=== PATIENT | female | born 1995 | race Native Hawaiian/Other Pacific Islander ===

== ENCOUNTER 2017-11-03 18:58 | Emergency (ER) | payer MEDICAID ==
[2017-11-03 19:38] LABS: Basophils # (Auto) 0.1 K/mm3 (0.0-0.1); Basophils % (Auto) 0.4 % (0.0-1.8); Eosinophils # (Auto) 0.1 K/mm3 (0.0-0.4); Eosinophils % (Auto) 0.4 % (0.0-4.3); Hematocrit 40.1 % (30.3-42.9); Hemoglobin 13.2 gm/dl (10.1-14.3); Lymphocytes # (Auto) 4.3 K/mm3 (1.2-5.4); Mean Corpuscular HGB Conc 33 % (30-34); Mean Corpuscular Hemoglobin 29 pg (28-32); Mean Corpuscular Volume 87 fl (79-97); Monocytes # (Auto) 1.1 K/mm3 (0.0-0.8); Platelet Count 264 K/mm3 (140-440); Red Blood Count 4.63 M/mm3 (3.65-5.03); Red Cell Distribution Width 14.3 % (13.2-15.2)
[2017-11-03 19:53] LABS: BUN/Creatinine Ratio 18; Blood Urea Nitrogen 16 mg/dL (7-17); Calcium 9.2 mg/dL (8.4-10.2); Hemolysis Index 14
[2017-11-03] MEDS ORDERED: GEODON IM ONE (20:24)
--- NOTE | 2017-11-03 20:36 | Emergency Department Report ---
ED Psych HPI - General Chief Complaint: Psych Stated Complaint: AMS Time Seen by Provider: 11/03/17 20:08 Source: patient Mode of arrival: Ambulatory - History of Present Illness Initial Comments: Patient is 22 years old female, unknown to this provider. Patient brought by a friend to the ER screaming and being combative upon arrival. With the strong odor of alcohol. Patient has an episode of agitation and episode of being calm. Unable to obtain more information at this time from the patient due to her mental status. MD Complaint: altered mental status - Related Data Previous Rx's Medication Instructions Recorded Last Taken Type Polyethylene Glycol 3350 [Miralax 17 gm PO DAILY #1 bottle 03/27/13 Unknown Rx 3350] Nitrofurantoin Monohyd/M-Cryst 100 mg PO BID #10 capsule 11/04/17 Unknown Rx [Macrobid 100 mg Capsule] Allergies Allergy/AdvReac Type Severity Reaction Status Date / Time No Known Allergies Allergy Unverified 03/27/13 00:43 ED Review of Systems ROS: Stated complaint: AMS Other details as noted in HPI Comment: All other systems reviewed and negative Constitutional: denies: chills Respiratory: denies: cough, orthopnea, shortness of breath, SOB with exertion, SOB at rest Cardiovascular: denies: chest pain Gastrointestinal: denies: abdominal pain, nausea Neurological: denies: headache, weakness ED Past Medical Hx - Past Medical History Previous Medical History?: Yes Hx Asthma: Yes - Surgical History Past Surgical History?: No - Social History Smoking Status: Unknown if ever smoked - Medications Home Medications: Home Medications Medication Instructions Recorded Confirmed Last Taken Type Polyethylene Glycol 3350 [Miralax 17 gm PO DAILY #1 bottle 03/27/13 11/03/17 Unknown Rx 3350] Nitrofurantoin Monohyd/M-Cryst 100 mg PO BID #10 capsule 11/04/17 Unknown Rx [Macrobid 100 mg Capsule] ED Physical Exam - General Limitations: No Limitations General appearance: alert, in no apparent distress, anxious, other (agitated) - Head Head exam: Present: atraumatic, normocephalic, normal inspection - Eye Eye exam: Present: normal appearance - ENT ENT exam: Present: normal exam, normal orophraynx, mucous membranes moist - Neck Neck exam: Present: normal inspection, full ROM. Absent: tenderness, meningismus, lymphadenopathy, thyromegaly - Respiratory Respiratory exam: Present: normal lung sounds bilaterally. Absent: respiratory distress, wheezes, rales - Cardiovascular Cardiovascular Exam: Present: regular rate, normal rhythm, normal heart sounds - GI/Abdominal GI/Abdominal exam: Present: soft, normal bowel sounds. Absent: distended, tenderness, guarding, rebound, rigid, organomegaly, mass, bruit, pulsatile mass , hernia - Extremities Exam Extremities exam: Present: normal inspection, full ROM, normal capillary refill - Neurological Exam Neurological exam: Present: alert, altered, CN II-XII intact, normal gait, reflexes normal - Psychiatric Psychiatric exam: Present: agitated, anxious, manic - Skin Skin exam: Present: warm, intact, normal color ED Course Vital Signs 11/03/17 11/03/17 11/04/17 19:54 21:38 10:00 Temperature 98.7 F 97.3 F L Pulse Rate 96 H 84 77 Respiratory 20 18 18 Rate Blood Pressure 119/77 118/65 111/68 [Left] O2 Sat by Pulse 98 100 99 Oximetry ED Medical Decision Making - Lab Data Result diagrams: 11/03/17 19:27 11/03/17 19:27 Critical care attestation.: If time is entered above; I have spent that time in minutes in the direct care of this critically ill patient, excluding procedure time. ED Disposition Clinical Impression: Cocaine abuse UTI (urinary tract infection) Qualifiers: Urinary tract infection type: site unspecified Hematuria presence: without hematuria Qualified Code(s): N39.0 - Urinary tract infection, site not specified Disposition: DC-01 TO HOME OR SELFCARE Is pt being admited?: No Condition: Stable Instructions: Cocaine Abuse (ED), Abuse of Alcohol (ED), Contusion in Adults ( ED) Additional Instructions: Return any acute change or problem. Follow-up at [facility] as well as [facility] Prescriptions: Nitrofurantoin Monohyd/M-Cryst [Macrobid 100 mg Capsule] 100 mg PO BID #10 capsule Referrals: [facility] [Provider Group] - 3-5 Days [facility] [Outside] - 3-5 Days [facility], [Primary Care Provider] - 3-5 Days
[2017-11-04 04:25] LABS: Amorphous Crystals,Urine 3+; Bacteria,Urine 4+ /HPF (Negative); Bilirubin,Urine NEG (Negative); Blood,Urine NEG (Negative); Color,Urine Amber (Yellow)
[2017-11-04 04:29] LABS: Benzodiazepines Screen,Urine PRESUMPTIVE NEGATIVE; Cocaine Screen,Urine PRESUMPTIVE NEGATIVE; Methadone Screen,Urine PRESUMPTIVE NEGATIVE; Opiate Screen,Urine PRESUMPTIVE NEGATIVE
[2017-11-04 04:57] LABS: Amphetamine Screen,Urine PRESUMPTIVE POSITIVE; Cannabinoid Screen,Urine PRESUMPTIVE POSITIVE
[2017-11-04] MEDS ORDERED: TYLENOL PO PRN (12:33)
[2017-11-04 13:05] VITALS: BP 111/68
--- NOTE | 2017-11-04 13:38 | Consultation ---
History of Present Illness - Reason for Consult Consult date: 11/04/17 Reason for consult: Mental Health Evaluation Requesting physician: JULY LARKIN - Chief Complaint Chief complaint: "I was drunk" - History of Present Psychiatric Illness 22 y.o. female presenting to the ER for etoh. Today the patient is calm and cooperative during the assessment. She stated having a long hx of substance abuse and most recently frequent alcohol consumption (etoh). She stated that she started using "drugs" at the age of 16. She stated that her drug use stem from peer pressure, but is aware that recreational drug use isn't safe. She denies being depressed and manic episodes in the past. She denies SI/HI's and AVH's. She denies a poor appetite and erratic sleep. She stated that she is willing to attend rehab once discharged. Medications and Allergies Allergies Allergy/AdvReac Type Severity Reaction Status Date / Time No Known Allergies Allergy Unverified 03/27/13 00:43 Home Medications Medication Instructions Recorded Confirmed Last Taken Type Polyethylene Glycol 3350 [Miralax 17 gm PO DAILY #1 bottle 03/27/13 11/03/17 Unknown Rx 3350] Active Meds: Active Medications Ziprasidone (Geodon) 20 mg IM ONCE ONE Stop: 11/04/17 20:21 Last Admin: 11/03/17 20:30 Dose: 20 mg Past psychiatric history - Past Medical History Past Medical History: No medical history Past Surgical History: No surgical history - past Psychiatric treatment and history psychiatric treatment history: Substance abuse hx. Denies a fam psy hx. - Social History Social history: lives with family Mental Status Exam - Vital signs Last Vital Signs Temp 97.3 F L 11/03/17 21:38 Pulse 77 11/04/17 10:00 Resp 18 11/04/17 10:00 BP 111/68 11/04/17 10:00 Pulse Ox 99 11/04/17 10:00 - Exam Narrative exam: MSE: Appearance: calm, cooperative Behavior: regular eye contact Speech: regular rate and tone Mood: "okay" Affect: congruent to mood Thought Process: linear Thought Content: denies SI/HI's and AVH's Motor Activity: lying in bed Cognition: A/O x 3 Insight: appropriate Judgment: appropriate Results Result Diagrams: 11/03/17 19:27 11/03/17 19:27 Abnormal lab results 11/03/17 11/03/17 11/03/17 Range/Units 19:27 19:27 19:27 WBC (4.5-11.0) K/mm3 [place] # (0.0-0.8) K/mm3 Seg Neutrophils # (1.8-7.7) K/mm3 Potassium 3.4 L (3.6-5.0) mmol/L Carbon Dioxide 18 L (22-30) mmol/L Glucose 130 H (65-100) mg/dL Urine WBC (Auto) (0.0-6.0) /HPF Salicylates < 0.3 L (2.8-20.0) mg/dL Acetaminophen < 5.0 L (10.0-30.0) ug/mL Plasma/Serum Alcohol (0-0.07) % 11/03/17 11/03/17 11/03/17 Range/Units 19:27 19:27 Unknown WBC 15.5 H (4.5-11.0) K/mm3 [place] # 1.1 H (0.0-0.8) K/mm3 Seg Neutrophils # 9.9 H (1.8-7.7) K/mm3 Potassium (3.6-5.0) mmol/L Carbon Dioxide (22-30) mmol/L Glucose (65-100) mg/dL Urine WBC (Auto) 11.0 H (0.0-6.0) /HPF Salicylates (2.8-20.0) mg/dL Acetaminophen (10.0-30.0) ug/mL Plasma/Serum Alcohol 0.13 H (0-0.07) % All other labs normal. Assessment and Plan Assessment and plan: Impression: Alcohol Use DO. Substance Use DO (cocaine). Cannabis Use DO. Alcohol Intoxication on admission to the ER. Today the patient is calm and cooperative during the assessment. DDx; R/O Mood DO Recommendation/Plan: Rescind 1013. The patient can follow up with [facility] for rehabs services. Discussed the importance to abstain from alcohol consumption and recreational drug use with the patient.
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
[2017-11-04] MEDS ORDERED: GEODON IM ONE (20:20)
== END 2017-11-04 16:30 | disposition home or self-care (01) ==
LOC: ED 18:58
DX: F14.10 Cocaine abuse, uncomplicated (principal); N39.0 Urinary tract infection, site not specified; J45.909 Unspecified asthma, uncomplicated
CPT/HCPCS: 36415; 80048; 80307; 81001; 84703; 85025; 96372; 99284; G0480; J3486; 80320

== ENCOUNTER 2018-03-16 09:03 | Day surgery (SDC) | payer SELFPAY ==
[2018-03-16] MEDS ORDERED: TYLENOL PO ONE (10:00)
--- NOTE | 2018-03-16 10:02 | Emergency Department Report ---
ED Female HPI - General Chief complaint: Vaginal Bleeding Stated complaint: POSS MISCARRIAGE Time Seen by Provider: 03/16/18 09:57 Source: patient Mode of arrival: Ambulatory Limitations: No Limitations - History of Present Illness Initial comments: Patient is a 23-year-old female who is presenting with heavier than normal vaginal bleeding. Patient's last missed her period was probably one month ago. Patient states that she began having lower abdominal cramping this morning. Patient's states she was rocking back and forth holding her abdomen all night long. Patient now is complaining of heavy vaginal bleeding with clots. Patient states pain feels better when she is holding her legs in a position and worse when her legs are straight. Patient denies any fevers chills nausea vomiting diarrhea or dysuria at this time. Patient states pain is 8 out of 10 in severity is cramping in nature. - Related Data Previous Rx's Medication Instructions Recorded Last Taken Type Polyethylene Glycol 3350 [Miralax 17 gm PO DAILY #1 bottle 03/27/13 Unknown Rx 3350] Nitrofurantoin Monohyd/M-Cryst 100 mg PO BID #10 capsule 11/04/17 Unknown Rx [Macrobid 100 mg Capsule] Allergies Allergy/AdvReac Type Severity Reaction Status Date / Time No Known Allergies Allergy Unverified 03/27/13 00:43 ED Review of Systems ROS: Stated complaint: POSS MISCARRIAGE Other details as noted in HPI Comment: All other systems reviewed and negative ED Past Medical Hx - Past Medical History Previous Medical History?: No Hx Asthma: Yes - Surgical History Past Surgical History?: No - Social History Smoking Status: Current Every Day Smoker Substance Use Type: Marijuana - Medications Home Medications: Home Medications Medication Instructions Recorded Confirmed Last Taken Type Polyethylene Glycol 3350 [Miralax 17 gm PO DAILY #1 bottle 03/27/13 11/03/17 Unknown Rx 3350] Nitrofurantoin Monohyd/M-Cryst 100 mg PO BID #10 capsule 11/04/17 Unknown Rx [Macrobid 100 mg Capsule] ED Physical Exam - General Limitations: No Limitations General appearance: alert, in no apparent distress - Head Head exam: Present: atraumatic, normocephalic - Eye Eye exam: Present: normal appearance - ENT ENT exam: Present: mucous membranes moist - Neck Neck exam: Present: normal inspection - Respiratory Respiratory exam: Present: normal lung sounds bilaterally. Absent: respiratory distress, wheezes, rales, rhonchi - Cardiovascular Cardiovascular Exam: Present: normal rhythm, tachycardia. Absent: systolic murmur, diastolic murmur, rubs, gallop - GI/Abdominal GI/Abdominal exam: Present: soft, tenderness, normal bowel sounds. Absent: distended, guarding, rebound, rigid - Extremities Exam Extremities exam: Present: normal inspection - Back Exam Back exam: Present: normal inspection - Neurological Exam Neurological exam: Present: alert, oriented X3 - Psychiatric Psychiatric exam: Present: normal affect, normal mood - Skin Skin exam: Present: warm, dry, intact, normal color. Absent: rash ED Course Vital Signs 03/16/18 03/16/18 03/16/18 09:10 10:22 15:21 Temperature 98.4 F Pulse Rate 121 H 97 H Respiratory 18 20 Rate Blood Pressure 154/76 Blood Pressure 137/85 [Right] O2 Sat by Pulse 100 Oximetry 03/16/18 15:58 Temperature Pulse Rate Respiratory 18 Rate Blood Pressure Blood Pressure [Right] O2 Sat by Pulse Oximetry ED Medical Decision Making - Lab Data Result diagrams: 03/16/18 11:59 - Medical Decision Making Patient bled through her clothes that she arrived and as well as several pads. Patient continued to have severe suprapubic pain. Ultrasound showed no definitive gestational sac visualized. Differential diagnoses include early IUP versus a failed first trimester . Once no IUP was seen with the Quant being 2600 patient was given 1 dose of morphine for pain control. with [employer] TECHNICIAN been consulted and states she will see the patient. Emergency department. Critical care attestation.: If time is entered above; I have spent that time in minutes in the direct care of this critically ill patient, excluding procedure time. ED Disposition Clinical Impression: Incomplete Disposition: DC-01 TO HOME OR SELFCARE Is pt being admited?: No Does the pt Need Aspirin: No Condition: Stable
[2018-03-16 12:14] LABS: Hematocrit 33.1 % (30.3-42.9); Hemoglobin 10.9 gm/dl (10.1-14.3); Mean Corpuscular HGB Conc 33 % (30-34); Mean Corpuscular Volume 86 fl (79-97); Platelet Count 210 K/mm3 (140-440); Red Blood Count 3.84 M/mm3 (3.65-5.03); Red Cell Distribution Width 14.2 % (13.2-15.2)
[2018-03-16 14:49] LABS: Basophils % (Manual) 0 % (0.0-1.8); Total Cells Counted 100
[2018-03-16 14:50] LABS: Anisocytosis 1+; Platelet Estimate Consistent w Auto
--- NOTE | 2018-03-16 15:19 | Ultrasound Report ---
FINAL REPORT EXAM: US OB <= 14 WEEKS FETUS HISTORY: preg with vag bleed COMPARISON: None. TECHNIQUE: Transabdominal imaging of the pelvis was performed. Evaluation was somewhat limited as th e bladder was not full. The patient refused transvaginal imaging. FINDINGS: The uterus measures 10.7 x 5.5 x 4.1 centimeters and is anteverted. The endometrium measures 10.3 millimeters in thickness. A gestational sac and yolk sac are not defini tely visualized. There may be a small amount of fluid within the lower uterine segment. The right ovary measures 3.1 x 3.2 x 2.4 centimeters and is normal in morphology. The left ovary measures 3 x 1.6 x 2 centimeters and is normal in morphology. There is normal arterial and venous flow to the bilateral ovaries. IMPRESSION: No definite gestational sac is visualized. Differential diagnosis includes very early intrauterine pr egnancy versus failed 1st trimester . Recommend serial beta HCG measurements and ultrasound follow-up as clinically indicated. Consider repeat imaging with full bladder and/or transvaginal imag ing. Small amount fluid within the lower uterine segment, that may represent hemorrhage.
[2018-03-16] MEDS ORDERED: MORPHINE IV ONE (15:34)
[2018-03-16] MEDS ORDERED: BENADRYL ONE (15:56)
[2018-03-16] MEDS ORDERED: BENADRYL IV ONE (15:57)
--- NOTE | 2018-03-16 17:30 | History and Physical Report ---
History of Present Illness Date of examination: 03/16/18 Date of admission: 03/16/18 Chief complaint: Heavy vaginal bleeding, positive test. History of present illness: Patient is a 23 year old , LMP unknown, who presented to the ER complaining of having heavy vaginal bleeding. She states that she started to have bleeding around 2 AM, then the cramps early this AM. She has been passing clots but is not sure if she passed any tissues. Her test is positive. She said that she did not know that she was . She denies any dizziness or p alpitation. Serum HCG is 2600. H/H: 10.9/33. Past History Past Medical History: asthma, other (anxiety) Past Surgical History: no surgical history Family/Genetic History: none Social history: single, smoking, other (crystal meth abuse, marijuana. H/O cocaine but said she stopped over a year ago.) Medications and Allergies Allergies Allergy/AdvReac Type Severity Reaction Status Date / Time No Known Allergies Allergy Unverified 03/27/13 00:43 Home Medications Medication Instructions Recorded Confirmed Last Taken Type Polyethylene Glycol 3350 [Miralax 17 gm PO DAILY #1 bottle 03/27/13 11/03/17 Unknown Rx 3350] Nitrofurantoin Monohyd/M-Cryst 100 mg PO BID #10 capsule 11/04/17 Unknown Rx [Macrobid 100 mg Capsule] - Vital Signs Vital signs: Vital Signs Temp Pulse Resp BP Pulse Ox 98.4 F 121 H 18 154/76 100 03/16/18 09:10 03/16/18 09:10 03/16/18 09:10 03/16/18 09:10 03/16/18 09:10 Temp Pulse Resp BP Pulse Ox 98.4 F 97 H 18 137/85 100 03/16/18 09:10 03/16/18 15:21 03/16/18 15:58 03/16/18 15:21 03/16/18 09:10 - Physical Exam Cardiovascular: Normal S1, Normal S2 Lungs: Positive: Clear to auscultation Vulva: both: normal Deep Tendon Reflex Grade: Normal +2 Results Result Diagrams: 03/16/18 11:59 Abnormal lab results 03/16/18 03/16/18 Range/Units 11:59 12:00 WBC 11.4 H (4.5-11.0) K/mm3 Seg Neuts % (Manual) 81.0 H (40.0-70.0) % Seg Neutrophils # Man 9.2 H (1.8-7.7) K/mm3 HCG, Quant 2688 H (0-4) mIU/mL All other labs normal. Assessment and Plan - Patient Problems (1) Incomplete Current Visit: Yes Status: Acute Plan to address problem: I discussed the sonographic findings with the patient. I told her that she has an incomplete miscarriage and she needs a suction D&C to evacuate the uterus. Risks and benefits of the procedure were discussed with her such as infection, bleeding requiring blood transfusion, uterine perforation. She expressed understanding, her questions were answered, she gave her informed consent. Keep NPO. OR team and anesthesia have been notified.
[2018-03-16] MEDS ORDERED: SILVER NITRATE TP ONE (17:38)
[2018-03-16] MEDS ORDERED: METHERGINE IM ONE (17:38)
[2018-03-16] MEDS ORDERED: DECADRON ONE (17:49)
[2018-03-16] MEDS ORDERED: NACL 0.9% 1000 ML 0 ML ONE (17:49)
[2018-03-16] MEDS ORDERED: ZOFRAN ONE (17:49)
[2018-03-16] MEDS ORDERED: VERSED ONE (17:50)
[2018-03-16] MEDS ORDERED: SUBLIMAZE ONE (17:50)
[2018-03-16] MEDS ORDERED: DIPRIVAN 10 MG/ML IV ONE (17:50)
[2018-03-16] MEDS ORDERED: LACTATED RINGERS 1,000 ML ONE (17:54)
--- NOTE | 2018-03-16 18:11 | Anesthesia Consultation ---
Anesthesia Consult and Med Hx Date of service: 03/16/18 - Airway Anesthetic Teeth Evaluation: Good ROM Head & Neck: Adequate Mental/Hyoid Distance: Adequate Mallampati Class: Class II Intubation Access Assessment: Probably Good - Pulmonary Exam CTA: Yes - Cardiac Exam Cardiac Exam: RRR - Pre-Operative Health Status ASA Pre-Surgery Classification: ASA3 Proposed Anesthetic Plan: General - Pulmonary Hx Smoking: Yes (marijuana) Hx Asthma: Yes (childhood; last exacerbation at age 14yrs) Hx Respiratory Symptoms: Yes (recent URI with nasal congestion and cough; now resolved) SOB: No - Cardiovascular System Hx Hypertension: No Hx Heart Attack/AMI: No Hx Percutaneous Transluminal Coronary Angioplasty (PTCA): No Hx Cardia Arrhythmia: No - Central Nervous System Hx Seizures: Yes (reports episode of seizure activity with meth use 1 yr ago) CVA: No - Gastrointestinal Hx Gastroesophageal Reflux Disease: No - Endocrine Hx Renal Disease: No Hx Liver Disease: No Hx Insulin Dependent Diabetes: No Hx Non-Insulin Dependent Diabetes: No Hx Thyroid Disease: No - Hematic Hx Anemia: Yes (T&S up to date) - Other Systems Hx Substance Use: Yes (marijuana, methamphetamine (last use 03/15/18 2200)) Hx Obesity: No - Additional Comments Anesthesia Medical History Comments: Presented with heavy vaginal bleeding concerning for spont . LMP <10wks ago. Last liquids approx 2hrs ago. Last solids approx 6hrs ago.
[2018-03-16] MEDS ORDERED: DILAUDID IV PRN (18:13)
[2018-03-16] MEDS ORDERED: DEMEROL IV PRN (18:13)
--- NOTE | 2018-03-16 18:13 | Anesthesia Day of Surgery ---
Anesthesia Day of Surgery - Day of Surgery Patient Examined: Yes Patient H&P Reviewed: Yes Patient is NPO: Yes
[2018-03-16] MEDS ORDERED: TRANSDERM-SCOP TD ONE (18:18)
[2018-03-16] MEDS ORDERED: ANCEF/STERILE WATER 2 GM/20 ML 2 GM/20 ML SYRINGE IV ONE (18:32)
[2018-03-16] MEDS ORDERED: XYLOCAINE MPF 2% ONE (18:39)
--- NOTE | 2018-03-16 18:54 | Operative Report ---
Operative Report Operative Report: Preoperative diagnosis: 1. Missed . Postoperative diagnosis: same as preoperative diagnosis. Procedure: 1. Suction D&C. Surgeon: Dr. Villareal Seaman: none Anesthesia: General EBL: 50 cc IVF: RL 1 liter Complications: none Procedure details: The risks, benefits, and alternatives of the procedure were discussed in detail with the patient which included but not limited to infection, hemorrhage requiring blood transfusion, and uterine perforation. The patient expressed understanding, her questions answered, and she gave informed consent. The patient was taken to the operating room with an IVF infusing Ringer's lactate. In the operating room, she was placed in the dorsal supine position and given general anesthesia. Then, she was placed on the stirrups in a dorsal lithotomy position. The perineum vagina and cervix were washed and she was prepared and draped in the usual sterile fashion. Examination under anesthesia revealed normal external genitalia and vagina. The cervix was open with active bleeding and tissues at the os. The uterus was 8-9 weeks size, anteverted, mobile. The adnexae were nonpalpable. A weighted speculum was placed placed on the posterior vaginal wall. The anterior lip of the cervix was grasped with a single-tooth tenaculum. An 8-mm suction curette was connected to the suction device and it was introduced into the uterine cavity. It was rotated and large amount of products of conception was suctioned. A gentle curettage was performed until a gritty texture was noticed. The suction device was re- introduced into the uterine cavity and it was rotated to remove the remaining products of conception. The instruments were removed from the uterus, cervix and vagina. The count of laps, needles, sponges, and instrument were correct 2. The patient tolerated the procedure well. She was awakened from the anesthesia and taken to the recovery room in a stable condition.
[2018-03-16] MEDS ORDERED: LACTATED RINGERS 1,000 ML IV SCH (19:00)
--- NOTE | 2018-03-16 19:01 | Post Anesthesia Evaluation ---
- Post Anesthesia Evaluation Patient Participated: Yes Airway Patent: Yes Stable Respiratory Function: Yes Nausea/Vomiting: No Temp > 96.8F: Yes Pain Manageable: Yes Adequeate Hydration: Yes Anesthesia Complications: No
[2018-03-16 20:38] VITALS: BP 100/60
== END 2018-03-16 20:25 | disposition home or self-care (01) ==
LOC: ED 09:03 → OR 09:03 → EDSTATUS 17:53 → OR 20:25
DX: O02.1 Missed abortion (principal); F17.210 Nicotine dependence, cigarettes, uncomplicated; Z79.899 Other long term (current) drug therapy
CPT/HCPCS: 36415; 59820; 76801; 84702; 84703; 85007; 85025; 86900; 86901; 88305; J0690; J1100; J1200; J2210; J2250; J2270; J2405; J2704; J3010; J7120; J7030

== ENCOUNTER 2020-10-03 15:40 | Emergency (ER) | payer SELFPAY ==
--- NOTE | 2020-10-03 16:13 | Emergency Department Report ---
HPI - General Time Seen by Provider: 10/03/20 16:06 - HPI HPI: This is a 25-year-old female presents to the emergency department via EMS after she had witnessed seizure-like activity. Upon arrival the patient is awake, alert, oriented, AAO x3. She admits to methamphetamine use and says that the "ice" is what did it and this is happened to her in the past. Patient has no complaints at this time and is requesting to leave AGAINST MEDICAL ADVICE. ED Past Medical Hx - Past Medical History Hx Hypertension: No Hx Heart Attack/AMI: No Hx Liver Disease: No Hx Renal Disease: No Hx Seizures: Yes (reports episode of seizure activity with meth use 1 yr ago) Hx Asthma: Yes - Social History Smoking Status: Current Every Day Smoker Substance Use Type: Marijuana - Medications Home Medications: Home Medications Medication Instructions Recorded Confirmed Last Taken Type polyethylene glycoL 3350 [Miralax 17 gm PO DAILY #1 bottle 03/27/13 11/03/17 Unknown Rx 3350] Nitrofurantoin Monohyd/M-Cryst 100 mg PO BID #10 capsule 11/04/17 Unknown Rx [Macrobid 100 mg Capsule] ED Review of Systems ROS: Stated complaint: SEIZURE Other details as noted in HPI Comment: All other systems reviewed and negative Constitutional: denies: chills, fever Eyes: denies: eye pain, vision change ENT: denies: ear pain, throat pain Respiratory: denies: cough, shortness of breath Cardiovascular: denies: chest pain, palpitations Gastrointestinal: denies: abdominal pain, vomiting Genitourinary: denies: dysuria, discharge Musculoskeletal: denies: back pain, arthralgia Skin: denies: rash, lesions Neurological: other (Seizure). denies: headache Physical Exam - Physical Exam Physical Exam: GENERAL: The patient is well-developed well-nourished. HENT: Normocephalic. Atraumatic. Patient has moist mucous membranes. EYES: Extraocular motions are intact. NECK: Supple. Trachea is midline. CHEST/LUNGS: Clear to auscultation. There is no respiratory distress noted. HEART/CARDIOVASCULAR: Regular. There is no tachycardia. There is no murmur. ABDOMEN: Abdomen is soft, nontender. Patient has normal bowel sounds. SKIN: Skin is warm and dry. NEURO: The patient is awake, alert, and oriented. The patient is cooperative. The patient has no focal neurologic deficits. Normal speech. Cranial nerves II through XII grossly intact. No facial asymmetry. MUSCULOSKELETAL: There is no tenderness or deformity. There is no limitation range of motion. ED Medical Decision Making - Medical Decision Making This patient presented to the emergency department after using or abusing methamphetamines and having some seizure-like activity. At the time of my examination she is awake, alert, oriented, AAO x3. She has no complaints and immediately is asking to sign out AMA. I was able to do a rudimentary examination that did not show any obvious focal or lateralizing deficits. Heart and lung sounds were normal to auscultation. She does not appear acutely intoxicated. She would not allow for vital signs to be taken or any laboratory tests or EKG to be performed. The patient understands that leaving at this time without any further evaluation could lead to an undiagnosed seizure disorder, further seizures, disability, coma or even . The patient has a normal decision-making capacity and despite understanding the risks has signed out AGAINST MEDICAL ADVICE. Her discharge instructions, and are conversation, included that the patient should avoid any further illicit drug use, alcohol use, excessive caffeine use. She also understands that she cannot drive a vehicle or operate heavy machinery for the 6 months or until cleared by a PCP or neurologist. Critical Care Time: No Critical care attestation.: If time is entered above; I have spent that time in minutes in the direct care of this critically ill patient, excluding procedure time. ED Disposition Clinical Impression: Methamphetamine abuse, Seizure Disposition: [id number] LEFT AGAINST MED ADVICE Is pt being admited?: No Condition: Stable Instructions: Seizure, Adult, Methamphetamines Use Disorder Additional Instructions: Please avoid any further illicit drug use. Please avoid any alcohol use or any excessive caffeine use. Try to get 8 hours of uninterrupted sleep at night. Return to the closest emergency department if you change your mind about further evaluation of your seizures. Because of the seizures, you are not allowed to drive a car or operate any heavy machinery for at least 6 months or until cleared by a primary care physician or neurologist. Forms: AMA Form
== END 2020-10-03 16:24 | disposition left against medical advice (07) ==
LOC: ED 15:40
DX: R56.9 Unspecified convulsions (principal); F15.10 Other stimulant abuse, uncomplicated; J45.909 Unspecified asthma, uncomplicated; F17.200 Nicotine dependence, unspecified, uncomplicated; F12.10 Cannabis abuse, uncomplicated
CPT/HCPCS: 99282

== ENCOUNTER 2020-10-26 15:34 | Emergency (ER) | payer SELFPAY | END 2020-10-26 21:17 | LOC: ED 15:34 | DX: R56.9 Unspecified convulsions (principal); Z53.21 Procedure and treatment not carried out due to patient leaving prior to being seen by health care provider ==